=== PATIENT | female | born 1990 | race Caucasian/White ===

== ENCOUNTER 2019-12-18 08:12 | Day surgery (SDC) | payer MEDICAID, OTHER ==
[2019-12-18] MEDS ORDERED: Sodium Chloride 0.9% 10 ML Syringe FLUSH PRN (08:30)
[2019-12-18] MEDS ORDERED: Sodium Chloride 0.9% 1,000 ML IV STA (08:30)
[2019-12-18] MEDS ORDERED: Ondansetron 4 MG/2 ML SDV IVPUSH ONE (08:30)
[2019-12-18] MEDS ORDERED: Morphine 4 MG/ML Syringe IVPUSH ONE (08:31)
--- NOTE | 2019-12-18 09:02 | EDM.PDOC ---
ED HPI GENERAL MEDICAL PROBLEM - General Chief Complaint: Abdominal Pain Stated Complaint: ABDOMINAL PAIN Time Seen by Provider: 12/18/19 08:16 Source of Information: Reports: Patient History Limitations: Reports: No Limitations - History of Present Illness INITIAL COMMENTS - FREE TEXT/NARRATIVE: The patient presents with right upper abdominal pain that wraps around to her back. This has been going on since last night. She has know gallbladder issues and she is consulting with a surgeon next week to talk about having her gallbladder removed. She has been dealing with this for over a month. She is not sure if she ate to much fat yesterday. She has been doing okay trying to avoid fat in her diet. She has nausea and vomiting. She has no fever, chills, cough, congestion, runny nose, dysuria or hematuria. Onset: Gradual Duration: Day(s): (last night) Location: Reports: Abdomen, Back Quality: Reports: Sharp Severity: Severe Improves with: Reports: None Worsens with: Reports: None Associated Symptoms: Reports: Nausea/Vomiting. Denies: Chest Pain, Cough, Fever/Chills, Headaches, Shortness of Breath Right Upper Abdominal Pain Score (Numeric/FACES): 8 - Related Data Allergies Allergy/AdvReac Type Severity Reaction Status Date / Time hydromorphone [From Dilaudid] Allergy Severe Hallucinati Verified 12/18/19 08:23 ons Past Medical History Respiratory History: Reports: Asthma Endocrine/Metabolic History: Reports: Hypothyroidism - Past Surgical History HEENT Surgical History: Reports: Adenoidectomy, Tonsillectomy Social & Family History - Tobacco Use Smoking Status *Q: Never Smoker - Caffeine Use Caffeine Use: Reports: Soda - Recreational Drug Use Recreational Drug Use: No ED ROS GENERAL - Review of Systems Review Of Systems: See Below Constitutional: Reports: No Symptoms HEENT: Reports: No Symptoms Respiratory: Reports: Cough Cardiovascular: Reports: No Symptoms Endocrine: Reports: No Symptoms GI/Abdominal: Reports: Abdominal Pain, Nausea, Vomiting. Denies: Diarrhea : Reports: No Symptoms Musculoskeletal: Reports: Back Pain ED EXAM, GI/ABD - Physical Exam Exam: See Below Exam Limited By: No Limitations General Appearance: Alert, Mild Distress Ears: Normal External Exam Nose: Normal Inspection Head: Atraumatic, Normocephalic Neck: Normal Inspection Respiratory/Chest: No Respiratory Distress, Lungs Clear, Normal Breath Sounds Cardiovascular: Regular Rate, Rhythm, No Edema, No Murmur GI/Abdominal Exam: Soft, No Organomegaly, No Mass, Tender (Moderate pain to the RUQ that radiates to her right flank) Back Exam: Other (Right back pain) Extremities: Normal Inspection Course - Vital Signs Last Recorded V/S: Last Vital Signs Temp 97.9 F 12/18/19 08:18 Pulse 83 12/18/19 08:18 Resp 20 12/18/19 08:18 BP 115/73 12/18/19 08:18 Pulse Ox 100 12/18/19 08:18 - Orders/Labs/Meds Orders: Active Orders 24 hr Category Date Time Status Peripheral IV Care [RC] . DIRECTED Care 12/18/19 08:30 Active Sodium Chloride 0.9% [Saline Flush] Med 12/18/19 08:30 Active 10 ml FLUSH ASDIRECTED PRN ED Antiemetic Medication Reflex [OM.PC] Stat Oth 12/18/19 08:30 Ordered Peripheral IV Insertion Adult [OM.PC] Stat Oth 12/18/19 08:30 Ordered Medication Orders Sodium Chloride (Saline Flush) 10 ml FLUSH ASDIRECTED PRN PRN Reason: Keep Vein Open Last Admin: 12/18/19 08:39 Dose: 10 ml Documented by: TREVER Labs: Laboratory Tests 12/18/19 12/18/19 12/18/19 Range/Units 08:32 08:36 08:36 WBC 16.13 H (3.98-10.04) K/mm3 RBC 4.49 (3.98-5.22) M/mm3 Hgb 13.8 (11.2-15.7) gm/dl Hct 41.5 (34.1-44.9) % MCV 92.4 (79.4-94.8) fl MCH 30.7 (25.6-32.2) pg MCHC 33.3 (32.2-35.5) g/dl RDW Std Deviation 40.6 (36.4-46.3) fL Plt Count 333 (182-369) K/mm3 MPV 10.0 (9.4-12.3) fl Neut % (Auto) 78.0 H (34.0-71.1) % Lymph % (Auto) 13.0 L (19.3-51.7) % [place] % (Auto) 7.3 (4.7-12.5) % Eos % (Auto) 1.2 (0.7-5.8) Baso % (Auto) 0.3 (0.1-1.2) % Neut # (Auto) 12.58 H (1.56-6.13) K/mm3 Lymph # (Auto) 2.10 (1.18-3.74) K/mm3 [place] # (Auto) 1.17 H (0.24-0.36) K/mm3 Eos # (Auto) 0.19 (0.04-0.36) K/mm3 Baso # (Auto) 0.05 (0.01-0.08) K/mm3 Manual Slide Review Normal smear Sodium 140 (136-145) mEq/L Potassium 4.3 (3.5-5.1) mEq/L Chloride 103 (98-107) mEq/L Carbon Dioxide 29 (21-32) mEq/L Anion Gap 12.3 (5-15) BUN 14 (7-18) mg/dL Creatinine 0.9 (0.55-1.02) mg/dL Est Cr Clr Drug Dosing 3.24 mL/min Estimated GFR (MDRD) > 60 (>60) mL/min BUN/Creatinine Ratio 15.6 (14-18) Glucose 117 H (74-106) mg/dL Calcium 8.8 (8.5-10.1) mg/dL Total Bilirubin 0.7 (0.2-1.0) mg/dL AST 76 H (15-37) U/L ALT 71 H (14-59) U/L Alkaline Phosphatase 103 (46-116) U/L Total Protein 7.6 (6.4-8.2) g/dl Albumin 4.0 (3.4-5.0) g/dl Globulin 3.6 gm/dL Albumin/Globulin Ratio 1.1 (1-2) Lipase 131 (73-393) U/L HCG, Qual (NEGATIVE) Urine Color Dark yellow (Yellow) Urine Appearance Clear (Clear) Urine pH 6.0 (5.0-8.0) Ur Specific [place] > or = 1.030 (1.005-1.030) Urine Protein Trace H (Negative) Urine Glucose (UA) Negative (Negative) Urine Ketones Negative (Negative) Urine Occult Blood Negative (Negative) Urine Nitrite Negative (Negative) Urine Bilirubin 1+ H (Negative) Urine Urobilinogen 1.0 (0.2-1.0) Ur Leukocyte Esterase Negative (Negative) Urine RBC 0-5 (0-5) /hpf Urine WBC 0-5 (0-5) /hpf Ur Squamous Epith Cells 5-10 H (0-5) /hpf Urine Bacteria Moderate H (FEW) /hpf Urine Mucus Many H (FEW) /hpf 12/18/19 Range/Units 08:36 WBC (3.98-10.04) K/mm3 RBC (3.98-5.22) M/mm3 Hgb (11.2-15.7) gm/dl Hct (34.1-44.9) % MCV (79.4-94.8) fl MCH (25.6-32.2) pg MCHC (32.2-35.5) g/dl RDW Std Deviation (36.4-46.3) fL Plt Count (182-369) K/mm3 MPV (9.4-12.3) fl Neut % (Auto) (34.0-71.1) % Lymph % (Auto) (19.3-51.7) % [place] % (Auto) (4.7-12.5) % Eos % (Auto) (0.7-5.8) Baso % (Auto) (0.1-1.2) % Neut # (Auto) (1.56-6.13) K/mm3 Lymph # (Auto) (1.18-3.74) K/mm3 [place] # (Auto) (0.24-0.36) K/mm3 Eos # (Auto) (0.04-0.36) K/mm3 Baso # (Auto) (0.01-0.08) K/mm3 Manual Slide Review Sodium (136-145) mEq/L Potassium (3.5-5.1) mEq/L Chloride (98-107) mEq/L Carbon Dioxide (21-32) mEq/L Anion Gap (5-15) BUN (7-18) mg/dL Creatinine (0.55-1.02) mg/dL Est Cr Clr Drug Dosing mL/min Estimated GFR (MDRD) (>60) mL/min BUN/Creatinine Ratio (14-18) Glucose (74-106) mg/dL Calcium (8.5-10.1) mg/dL Total Bilirubin (0.2-1.0) mg/dL AST (15-37) U/L ALT (14-59) U/L Alkaline Phosphatase (46-116) U/L Total Protein (6.4-8.2) g/dl Albumin (3.4-5.0) g/dl Globulin gm/dL Albumin/Globulin Ratio (1-2) Lipase (73-393) U/L HCG, Qual Negative (NEGATIVE) Urine Color (Yellow) Urine Appearance (Clear) Urine pH (5.0-8.0) Ur Specific [place] (1.005-1.030) Urine Protein (Negative) Urine Glucose (UA) (Negative) Urine Ketones (Negative) Urine Occult Blood (Negative) Urine Nitrite (Negative) Urine Bilirubin (Negative) Urine Urobilinogen (0.2-1.0) Ur Leukocyte Esterase (Negative) Urine RBC (0-5) /hpf Urine WBC (0-5) /hpf Ur Squamous Epith Cells (0-5) /hpf Urine Bacteria (FEW) /hpf Urine Mucus (FEW) /hpf Meds: Medications Generic Name Dose Route Start Last Admin Trade Name Freq PRN Reason Stop Dose Admin Sodium Chloride 10 ml 12/18/19 08:30 12/18/19 08:39 Saline Flush FLUSH 10 ml ASDIRECTED PRN Administration Keep Vein Open Discontinued Medications Generic Name Dose Route Start Last Admin Trade Name Freq PRN Reason Stop Dose Admin Diphenhydramine HCl 50 mg 12/18/19 09:12 12/18/19 09:17 Benadryl IVPUSH 12/18/19 09:13 50 mg ONETIME ONE Administration Sodium Chloride 1,000 mls @ 1,000 mls/hr 12/18/19 08:30 12/18/19 08:35 Normal Saline IV 12/18/19 09:29 1,000 mls/hr .BOLUS STA Administration Morphine Sulfate 4 mg 12/18/19 08:31 12/18/19 08:38 Morphine IVPUSH 12/18/19 08:32 4 mg ONETIME ONE Administration Ondansetron HCl 4 mg 12/18/19 08:30 12/18/19 08:37 Zofran IVPUSH 12/18/19 08:31 4 mg ONETIME ONE Administration - Re-Assessments/Exams Free Text/Narrative Re-Assessment/Exam: 12/18/19 09:00 I ordered an IV NS 1L bolus, zofran 4mg IV, morphine 4mg IV, labs, UA and US. 12/18/19 09:58 Her WBC is elevated at 16.13. Her AST is elevated at 76. Her ALT is elevated at 71. Her lipase is normal. Her HCG is negative. Her UA shows no UTI. I am waiting for the US report. She requested some benadryl so I ordered her that. 12/18/19 11:15 Her US shows small layering gallstones with no gallbladder wall thickening or biliary duct dilatation. NO additional abnormality is appreciated on right upper quadrant abdominal US. I called Dr Collado and she will come see the patient and possibly removed the gallbladder today. 12/18/19 11:44 Dr Collado came to see the patient and she will take her to surgery. Departure - Departure Time of Disposition: 11:45 Disposition: DC/Tfer to [facility] Condition: Fair Clinical Impression: Biliary colic Cholelithiases Qualifiers: Cholelithiasis location: gallbladder Cholecystitis presence: without cholecystitis Biliary obstruction: without biliary obstruction Qualified Code(s): K80.20 - Calculus of gallbladder without cholecystitis without ob struction - Discharge Information Referrals: PCP,Not In Area [Primary Care Provider] - Forms: ED Department Discharge Sepsis Event Note (ED) - Evaluation Sepsis Screening Result: No Definite Risk - Focused Exam Vital Signs: Vital Signs Temp Pulse Resp BP Pulse Ox 12/18/19 08:18 97.9 F 83 20 115/73 100 - My Orders Last 24 Hours: My Active Orders 12/18/19 08:30 Peripheral IV Care [RC] . DIRECTED Sodium Chloride 0.9% [Saline Flush] 10 ml FLUSH ASDIRECTED PRN ED Antiemetic Medication Reflex [OM.PC] Stat Peripheral IV Insertion Adult [OM.PC] Stat - Assessment/Plan Last 24 Hours: My Active Orders 12/18/19 08:30 Peripheral IV Care [RC] . DIRECTED Sodium Chloride 0.9% [Saline Flush] 10 ml FLUSH ASDIRECTED PRN ED Antiemetic Medication Reflex [OM.PC] Stat Peripheral IV Insertion Adult [OM.PC] Stat
[2019-12-18] MEDS ORDERED: diphenhydrAMINE 50 MG/ML SDV IVPUSH ONE (09:12)
--- NOTE | 2019-12-18 10:54 | US ---
Limited abdominal ultrasound: Multiple real-time images of the upper right abdomen were obtained. Liver contains no focal abnormality. Pancreas appears normal. Gallbladder shows small layering gallstones. No gallbladder wall thickening or biliary duct dilatation is seen. Right kidney shows no hydronephrosis or mass. Impression: 1. Small layering gallstones with no gallbladder wall thickening or biliary duct dilatation. 2. No additional abnormality is appreciated on right upper quadrant abdominal ultrasound. Diagnostic code #2 Study was dictated in MDT
--- NOTE | 2019-12-18 11:46 | PCM.HP.2 ---
H&P History of Present Illness - General Date of Service: 12/18/19 Source of Information: Patient, Provider History Limitations: Reports: No Limitations - History of Present Illness Initial Comments - Free Text/Narative: The patient is a 29-year-old female presents with a complaint of right upper quadrant abdominal pain. The pain radiates to her back. It started at 5 AM this morning. She reports vomiting 1 time, it was nonbloody nonbilious. She has had 2 previous episodes, the last one was in August. She had elevation of her liver enzymes at that time, without any known explanation. She was diagnosed with biliary problems, and was scheduled to see a surgeon in [place]. In the emergency department she was evaluated with labs and ultrasound. She has elevated white blood cell count greater than 16,000. She has some layering stones in the gallbladder. Right Upper Abdominal Pain Score (Numeric/FACES): 8 - Related Data Allergies/Adverse Reactions: Allergies Allergy/AdvReac Type Severity Reaction Status Date / Time hydromorphone [From Dilaudid] Allergy Severe Hallucinati Verified 12/18/19 08:23 ons Past Medical History Respiratory History: Reports: Asthma Genitourinary History: Reports: Renal Calculus Endocrine/Metabolic History: Reports: Hypothyroidism - Past Surgical History HEENT Surgical History: Reports: Adenoidectomy, Tonsillectomy Social & Family History - Family History Cardiac: Reports: [place] : Reports: Renal Calculus Endocrine/Metabolic: Reports: Hypothyroidism - Tobacco Use Smoking Status *Q: Never Smoker - Caffeine Use Caffeine Use: Reports: Soda - Recreational Drug Use Recreational Drug Use: No H&P Review of Systems - Review of Systems: Review Of Systems: See Below General: Reports: No Symptoms HEENT: Reports: No Symptoms Pulmonary: Reports: No Symptoms Cardiovascular: Reports: No Symptoms Gastrointestinal: Reports: Abdominal Pain, Vomiting Genitourinary: Reports: No Symptoms Musculoskeletal: Reports: Joint Pain Skin: Reports: No Symptoms Neurological: Reports: No Symptoms Hematologic/Lymphatic: Reports: No Symptoms Exam - Exam Exam: See Below - Vital Signs Vital Signs: Last Vital Signs Temp 36.6 C 12/18/19 08:18 Pulse 83 12/18/19 08:18 Resp 20 12/18/19 08:18 BP 115/73 12/18/19 08:18 Pulse Ox 100 12/18/19 08:18 Weight: 2.268 kg - Exam Quality Assessment: No: Supplemental Oxygen General: Alert, Oriented HEENT: Conjunctiva Clear, EOMI Neck: Supple Lungs: Normal Respiratory Effort Cardiovascular: Regular Rate, Regular Rhythm GI/Abdominal Exam: Soft, Tender (in right abdomen, most in epigastrium) - Patient Data Lab Results Last 24 hrs: Laboratory Results - last 24 hr 12/18/19 12/18/19 12/18/19 Range/Units 08:32 08:36 08:36 WBC 16.13 H (3.98-10.04) K/mm3 RBC 4.49 (3.98-5.22) M/mm3 Hgb 13.8 (11.2-15.7) gm/dl Hct 41.5 (34.1-44.9) % MCV 92.4 (79.4-94.8) fl MCH 30.7 (25.6-32.2) pg MCHC 33.3 (32.2-35.5) g/dl RDW Std Deviation 40.6 (36.4-46.3) fL Plt Count 333 (182-369) K/mm3 MPV 10.0 (9.4-12.3) fl Neut % (Auto) 78.0 H (34.0-71.1) % Lymph % (Auto) 13.0 L (19.3-51.7) % [place] % (Auto) 7.3 (4.7-12.5) % Eos % (Auto) 1.2 (0.7-5.8) Baso % (Auto) 0.3 (0.1-1.2) % Neut # (Auto) 12.58 H (1.56-6.13) K/mm3 Lymph # (Auto) 2.10 (1.18-3.74) K/mm3 [place] # (Auto) 1.17 H (0.24-0.36) K/mm3 Eos # (Auto) 0.19 (0.04-0.36) K/mm3 Baso # (Auto) 0.05 (0.01-0.08) K/mm3 Manual Slide Review Normal smear Sodium 140 (136-145) mEq/L Potassium 4.3 (3.5-5.1) mEq/L Chloride 103 (98-107) mEq/L Carbon Dioxide 29 (21-32) mEq/L Anion Gap 12.3 (5-15) BUN 14 (7-18) mg/dL Creatinine 0.9 (0.55-1.02) mg/dL Est Cr Clr Drug Dosing 3.24 mL/min Estimated GFR (MDRD) > 60 (>60) mL/min BUN/Creatinine Ratio 15.6 (14-18) Glucose 117 H (74-106) mg/dL Calcium 8.8 (8.5-10.1) mg/dL Total Bilirubin 0.7 (0.2-1.0) mg/dL AST 76 H (15-37) U/L ALT 71 H (14-59) U/L Alkaline Phosphatase 103 (46-116) U/L Total Protein 7.6 (6.4-8.2) g/dl Albumin 4.0 (3.4-5.0) g/dl Globulin 3.6 gm/dL Albumin/Globulin Ratio 1.1 (1-2) Lipase 131 (73-393) U/L HCG, Qual (NEGATIVE) Urine Color Dark yellow (Yellow) Urine Appearance Clear (Clear) Urine pH 6.0 (5.0-8.0) Ur Specific [place] > or = 1.030 (1.005-1.030) Urine Protein Trace H (Negative) Urine Glucose (UA) Negative (Negative) Urine Ketones Negative (Negative) Urine Occult Blood Negative (Negative) Urine Nitrite Negative (Negative) Urine Bilirubin 1+ H (Negative) Urine Urobilinogen 1.0 (0.2-1.0) Ur Leukocyte Esterase Negative (Negative) Urine RBC 0-5 (0-5) /hpf Urine WBC 0-5 (0-5) /hpf Ur Squamous Epith Cells 5-10 H (0-5) /hpf Urine Bacteria Moderate H (FEW) /hpf Urine Mucus Many H (FEW) /hpf 12/18/19 Range/Units 08:36 WBC (3.98-10.04) K/mm3 RBC (3.98-5.22) M/mm3 Hgb (11.2-15.7) gm/dl Hct (34.1-44.9) % MCV (79.4-94.8) fl MCH (25.6-32.2) pg MCHC (32.2-35.5) g/dl RDW Std Deviation (36.4-46.3) fL Plt Count (182-369) K/mm3 MPV (9.4-12.3) fl Neut % (Auto) (34.0-71.1) % Lymph % (Auto) (19.3-51.7) % [place] % (Auto) (4.7-12.5) % Eos % (Auto) (0.7-5.8) Baso % (Auto) (0.1-1.2) % Neut # (Auto) (1.56-6.13) K/mm3 Lymph # (Auto) (1.18-3.74) K/mm3 [place] # (Auto) (0.24-0.36) K/mm3 Eos # (Auto) (0.04-0.36) K/mm3 Baso # (Auto) (0.01-0.08) K/mm3 Manual Slide Review Sodium (136-145) mEq/L Potassium (3.5-5.1) mEq/L Chloride (98-107) mEq/L Carbon Dioxide (21-32) mEq/L Anion Gap (5-15) BUN (7-18) mg/dL Creatinine (0.55-1.02) mg/dL Est Cr Clr Drug Dosing mL/min Estimated GFR (MDRD) (>60) mL/min BUN/Creatinine Ratio (14-18) Glucose (74-106) mg/dL Calcium (8.5-10.1) mg/dL Total Bilirubin (0.2-1.0) mg/dL AST (15-37) U/L ALT (14-59) U/L Alkaline Phosphatase (46-116) U/L Total Protein (6.4-8.2) g/dl Albumin (3.4-5.0) g/dl Globulin gm/dL Albumin/Globulin Ratio (1-2) Lipase (73-393) U/L HCG, Qual Negative (NEGATIVE) Urine Color (Yellow) Urine Appearance (Clear) Urine pH (5.0-8.0) Ur Specific [place] (1.005-1.030) Urine Protein (Negative) Urine Glucose (UA) (Negative) Urine Ketones (Negative) Urine Occult Blood (Negative) Urine Nitrite (Negative) Urine Bilirubin (Negative) Urine Urobilinogen (0.2-1.0) Ur Leukocyte Esterase (Negative) Urine RBC (0-5) /hpf Urine WBC (0-5) /hpf Ur Squamous Epith Cells (0-5) /hpf Urine Bacteria (FEW) /hpf Urine Mucus (FEW) /hpf Result Diagrams: 12/18/19 08:32 12/18/19 08:36 Sepsis Event Note - Evaluation Sepsis Screening Result: No Definite Risk - Focused Exam Vital Signs: Vital Signs Temp Pulse Resp BP Pulse Ox 12/18/19 08:18 36.6 C 83 20 115/73 100 Date Exam was Performed: 12/18/19 Time Exam was Performed: 12:28 *Q Meaningful Use (ADM) - VTE Risk Assess *Q Each Risk Factor Represents 1 Point: Minor Surgery Planned, Obesity ( BMI > 25 kg/m2) Total Score 1 Point Risk Factors: 2 - Problem List (1) Acute cholecystitis SNOMED Code(s): 37127839 ICD Code: K81.0 - ACUTE CHOLECYSTITIS Status: Acute Current Visit: Yes Problem List Initiated/Reviewed/Updated: Yes Orders Last 24hrs: Active Orders 24 hr Category Date Time Status Peripheral IV Care [RC] . DIRECTED Care 12/18/19 08:30 Active Sodium Chloride 0.9% [Saline Flush] Med 12/18/19 08:30 Active 10 ml FLUSH ASDIRECTED PRN ED Antiemetic Medication Reflex [OM.PC] Stat Oth 12/18/19 08:30 Ordered Peripheral IV Insertion Adult [OM.PC] Stat Oth 12/18/19 08:30 Ordered Medication Orders Sodium Chloride (Saline Flush) 10 ml FLUSH ASDIRECTED PRN PRN Reason: Keep Vein Open Last Admin: 12/18/19 08:39 Dose: 10 ml Documented by: TREVER Assessment/Plan Comment:: 29-year-old lady with acute cholecystitis - cefoxitin 2g IV - NPO - IVF resuscitation - plan for OR for urgent laparoscopic cholecystectomy, possible open. Discussed risks of infection, bleeding, bile duct injury, or injury to surrounding structures. Her written consent was obtained. -Determine need for inpatient stay based on intraoperative findings Ana Pollock MD General Surgery - Mortality Measure Prognosis:: Good
--- NOTE | 2019-12-18 12:37 | PCM.PREANE ---
Preanesthetic Assessment - Procedure Proposed Procedure: laparoscopic cholecystectomy - Anesthesia/Transfusion/Family Hx Anesthesia History: Prior Anesthesia Without Reaction Family History of Anesthesia Reaction: No Transfusion History: No Prior Transfusion(s) - Review of Systems General: Fatigue, Malaise Pulmonary: No Symptoms Cardiovascular: No Symptoms Gastrointestinal: Abdominal Pain (RUQ), Nausea, Vomiting (This AM) Neurological: Numbness ("fingers") Other: Reports: Liver Problems (elevated enzymes), Thyroid Problems (hypothyroid), Depression, Anxiety - Physical Assessment NPO Status Date: 12/17/19 NPO Status Time: 00:00 Vital Signs: Last Vital Signs Temp 36.6 C 12/18/19 08:18 Pulse 83 12/18/19 08:18 Resp 20 12/18/19 08:18 BP 115/73 12/18/19 08:18 Pulse Ox 100 12/18/19 08:18 Height: 4.95 m Weight: 2.268 kg ASA Class: 2 Mental Status: Alert & Oriented x3 Airway Class: Mallampati = 1 Dentition: Reports: Partial Thyro-Mental Finger Breadths: 3 Mouth Opening Finger Breadths: 3 ROM/Head Extension: Full Lungs: Clear to Auscultation, Normal Respiratory Effort Cardiovascular: Regular Rate, Regular Rhythm - Lab Values: Laboratory Last Values WBC 16.13 K/mm3 (3.98-10.04) H 12/18/19 08:32 RBC 4.49 M/mm3 (3.98-5.22) 12/18/19 08:32 Hgb 13.8 gm/dl (11.2-15.7) 12/18/19 08:32 Hct 41.5 % (34.1-44.9) 12/18/19 08:32 MCV 92.4 fl (79.4-94.8) 12/18/19 08:32 MCH 30.7 pg (25.6-32.2) 12/18/19 08:32 MCHC 33.3 g/dl (32.2-35.5) 12/18/19 08:32 RDW Std Deviation 40.6 fL (36.4-46.3) 12/18/19 08:32 Plt Count 333 K/mm3 (182-369) 12/18/19 08:32 MPV 10.0 fl (9.4-12.3) 12/18/19 08:32 Neut % (Auto) 78.0 % (34.0-71.1) H 12/18/19 08:32 Lymph % (Auto) 13.0 % (19.3-51.7) L 12/18/19 08:32 [place] % (Auto) 7.3 % (4.7-12.5) 12/18/19 08:32 Eos % (Auto) 1.2 (0.7-5.8) 12/18/19 08:32 Baso % (Auto) 0.3 % (0.1-1.2) 12/18/19 08:32 Neut # (Auto) 12.58 K/mm3 (1.56-6.13) H 12/18/19 08:32 Lymph # (Auto) 2.10 K/mm3 (1.18-3.74) 12/18/19 08:32 [place] # (Auto) 1.17 K/mm3 (0.24-0.36) H 12/18/19 08:32 Eos # (Auto) 0.19 K/mm3 (0.04-0.36) 12/18/19 08:32 Baso # (Auto) 0.05 K/mm3 (0.01-0.08) 12/18/19 08:32 Manual Slide Review Normal smear 12/18/19 08:32 Sodium 140 mEq/L (136-145) 12/18/19 08:36 Potassium 4.3 mEq/L (3.5-5.1) 12/18/19 08:36 Chloride 103 mEq/L (98-107) 12/18/19 08:36 Carbon Dioxide 29 mEq/L (21-32) 12/18/19 08:36 Anion Gap 12.3 (5-15) 12/18/19 08:36 BUN 14 mg/dL (7-18) 12/18/19 08:36 Creatinine 0.9 mg/dL (0.55-1.02) 12/18/19 08:36 Est Cr Clr Drug Dosing 3.24 mL/min 12/18/19 08:36 Estimated GFR (MDRD) > 60 mL/min (>60) 12/18/19 08:36 BUN/Creatinine Ratio 15.6 (14-18) 12/18/19 08:36 Glucose 117 mg/dL (74-106) H 12/18/19 08:36 Calcium 8.8 mg/dL (8.5-10.1) 12/18/19 08:36 Total Bilirubin 0.7 mg/dL (0.2-1.0) 12/18/19 08:36 AST 76 U/L (15-37) H 12/18/19 08:36 ALT 71 U/L (14-59) H 12/18/19 08:36 Alkaline Phosphatase 103 U/L (46-116) 12/18/19 08:36 Total Protein 7.6 g/dl (6.4-8.2) 12/18/19 08:36 Albumin 4.0 g/dl (3.4-5.0) 12/18/19 08:36 Globulin 3.6 gm/dL 12/18/19 08:36 Albumin/Globulin Ratio 1.1 (1-2) 12/18/19 08:36 Lipase 131 U/L (73-393) 12/18/19 08:36 HCG, Qual Negative (NEGATIVE) 12/18/19 08:36 Urine Color Dark yellow (Yellow) 12/18/19 08:36 Urine Appearance Clear (Clear) 12/18/19 08:36 Urine pH 6.0 (5.0-8.0) 12/18/19 08:36 Ur Specific [place] > or = 1.030 (1.005-1.030) 12/18/19 08:36 Urine Protein Trace (Negative) H 12/18/19 08:36 Urine Glucose (UA) Negative (Negative) 12/18/19 08:36 Urine Ketones Negative (Negative) 12/18/19 08:36 Urine Occult Blood Negative (Negative) 12/18/19 08:36 Urine Nitrite Negative (Negative) 12/18/19 08:36 Urine Bilirubin 1+ (Negative) H 12/18/19 08:36 Urine Urobilinogen 1.0 (0.2-1.0) 12/18/19 08:36 Ur Leukocyte Esterase Negative (Negative) 12/18/19 08:36 Urine RBC 0-5 /hpf (0-5) 12/18/19 08:36 Urine WBC 0-5 /hpf (0-5) 12/18/19 08:36 Ur Squamous Epith Cells 5-10 /hpf (0-5) H 12/18/19 08:36 Urine Bacteria Moderate /hpf (FEW) H 12/18/19 08:36 Urine Mucus Many /hpf (FEW) H 12/18/19 08:36 - Allergies Allergies/Adverse Reactions: Allergies Allergy/AdvReac Type Severity Reaction Status Date / Time hydromorphone [From Dilaudid] Allergy Severe Hallucinati Verified 12/18/19 08:23 ons - Blood Blood Available: No Product(s) Available: None - Anesthesia Plan Pre-Op Medication Ordered: None - Acknowledgements Anesthesia Type Planned: General Anesthesia Pt an Appropriate Candidate for the Planned Anesthesia: Yes Alternatives and Risks of Anesthesia Discussed w Pt/Guardian: Yes Pt/Guardian Understands and Agrees with Anesthesia Plan: Yes PreAnesthesia Questionnaire Respiratory History: Reports: Asthma Gastrointestinal History: Reports: GERD Genitourinary History: Reports: Renal Calculus Endocrine/Metabolic History: Reports: Hypothyroidism - Past Surgical History HEENT Surgical History: Reports: Adenoidectomy, Tonsillectomy - SUBSTANCE USE Smoking Status *Q: Never Smoker Tobacco Use Within Last Twelve Months: No Second Hand Smoke Exposure: No Days Per Week of Alcohol Use: 1 Number of Drinks Per Day: 0 Total Drinks Per Week: 0 Recreational Drug Use History: Yes Recreational Drug Type: Reports: Marijuana/Hashish (medical card for Anxiety and depression) - CURRENT (IN HOUSE) MEDS Current Meds: Current Medications Sodium Chloride (Saline Flush) 10 ml FLUSH ASDIRECTED PRN PRN Reason: Keep Vein Open Last Admin: 12/18/19 08:39 Dose: 10 ml Documented by: Discontinued Medications Diphenhydramine HCl (Benadryl) 50 mg IVPUSH ONETIME ONE Stop: 12/18/19 09:13 Last Admin: 12/18/19 09:17 Dose: 50 mg Documented by: Sodium Chloride (Normal Saline) 1,000 mls @ 1,000 mls/hr IV .BOLUS STA Stop: 12/18/19 09:29 Last Admin: 12/18/19 08:35 Dose: 1,000 mls/hr Documented by: Morphine Sulfate (Morphine) 4 mg IVPUSH ONETIME ONE Stop: 12/18/19 08:32 Last Admin: 12/18/19 08:38 Dose: 4 mg Documented by: Ondansetron HCl (Zofran) 4 mg IVPUSH ONETIME ONE Stop: 12/18/19 08:31 Last Admin: 12/18/19 08:37 Dose: 4 mg Documented by:
[2019-12-18] MEDS ORDERED: Ondansetron 4 MG/2 ML SDV ONE (12:50)
[2019-12-18] MEDS ORDERED: Rocuronium 50 MG/5 ML Vial ONE (12:50)
[2019-12-18] MEDS ORDERED: Propofol 200 MG/20 ML SDV ONE (12:51)
[2019-12-18] MEDS ORDERED: Midazolam 1 MG/ML 2 ML SDV ONE (12:51)
[2019-12-18] MEDS ORDERED: Lidocaine 1% 4 ML ONE (12:51)
[2019-12-18] MEDS ORDERED: fentaNYL 250 MCG/5 ML SDV ONE ×2 (12:51→14:08)
[2019-12-18] MEDS ORDERED: Lactated Ringers 1,000 ML ONE ×2 (13:04→14:46)
[2019-12-18] MEDS ORDERED: Bupivacaine 0.5%/EPINEPHrine 1:200,000 50 ML MDV ONE (13:08)
[2019-12-18] MEDS ORDERED: Lidocaine 1% with EPINEPHrine 1:100,000 20 ML MDV ONE (13:08)
[2019-12-18] MEDS ORDERED: cefOXitin 2 GM in Premix Bag 1 BAG IV ONE (13:16)
--- NOTE | 2019-12-18 14:48 | PCM.OPNOTE ---
- General Post-Op/Procedure Note Date of Surgery/Procedure: 12/18/19 Operative Procedure(s): laparoscopic cholecystectomy Findings: normal anatomy Pre Op Diagnosis: acute cholecystitis Post-Op Diagnosis: same Anesthesia Technique: MAC Primary Surgeon: Ana Pollock Anesthesia Provider: Nicolás Jarrell Pathology: gallbladder with contents Fluid Replacement, Intraop: 1,300 Output, Urine Amount: 0 EBL in mLs: 20 Complications: none apparent Condition: Good
--- NOTE | 2019-12-18 14:51 | PCM.PRNOTE ---
- Free Text/Narrative Note: OPERATIVE REPORT Date of Surgery/Procedure: December 18, 2019 Operative Procedure(s): laparoscopic cholecystectomy Findings: Normal gallbladder anatomy Pre Op Diagnosis: Acute cholecystitis Post-Op Diagnosis: Same Anesthesia Technique: General ET Tube Primary Surgeon: Ana Pollock MD Anesthesia Provider: Nicolás Jarrell CRNA Pathology: Gallbladder with contents Fluid Replacement, Intraop: 1300cc Output, Urine Amount: 0cc EBL: 20cc Drain/Tube Comments: None Indication for the procedure: The patient is a 29-year-old lady who presented to the emergency department with findings of acute cholecystitis. The patient was counseled for laparoscopic cholecystectomy, with possible conversion to open. After discussion of the risks of infection, bleeding and injury to the bile duct, the patient's consent was obtained. Description of the procedure: The patient presented to the outpatient holding area on the day of the procedure. The history and physical were verified and consent was present and on the chart. The patient was taken back to the operating room and placed in supine position on the operating table. SCD boots were placed and functional prior to the start of the procedure. Preoperative antibiotics were administered, cefoxitin 2 g IV. A surgical timeout was performed. The patient then had induction of general anesthesia and was intubated without difficulty. The patient was prepped and draped in standard surgical fashion. We began by making an infraumbilical vertical incision and deepened this down through subcutaneous fat to the level of the fascia. This was grasped and incised. We bluntly entered through the peritoneum and a finger sweep was done. A stay suture of 0 Vicryl was placed in the fascia. The 12 mm balloon Ordaz port was then inserted into the abdomen and the balloon inflated. Insufflation was attached and we had appropriate opening pressures. The abdomen was then insufflated to 15 mmHg. We inserted a scope into the abdomen and inspected the area where we had entered. There was no evidence of injury to surrounding structures with no evidence of bile or bleeding. A TAP block was then performed using 1% lidocaine with epinephrine mixed with 0.5% bupivacaine with epinephrine. We then proceeded with placing our additional ports. A 5mm port was placed in the epigastric region. Two additional 5mm ports placed under direct visualization in the right upper quadrant. The patient was then positioned with head up and right side up to facilitate exposure of the gallbladder. Once we had sufficiently exposed the dome of the gallbladder. This was grasped and retracted cephalad. We proceeded with our dissection to expose the cystic duct and cystic artery. We did have a critical view. The cystic duct and artery were then clipped and cut using endoscopic scissors. We then proceeded to fully dissect the gallbladder off of the cystic plate using the Bovie device. The gallbladder was then placed in the Endo Catch bag and withdrawn towards the umbilical port. We then inspected the area of the dissection. The Bovie device was used for hem ostasis. We then reinspected, there was no significant bleeding and hemostasis was achieved. We then inspected the port sites and desufflated the abdomen. The ports were then removed. The gallbladder was withdrawn through the umbilical port site. We then proceeded to close the umbilical port site using an 0 Vicryl stitch. We had good closure of the fascia. A superficial 4-0 monocryl suture was used to approximate the skin. The skin was covered with Dermabond surgical glue. The patient tolerated the procedure well and was extubated without difficulty. She was transported to the PACU in stable condition. All sponge, needle counts correct. I was scrubbed and actively participated in the entire procedure. No immediate complications noted. Complications: None apparent Condition: Good Ana Pollock MD General Surgery
[2019-12-18] MEDS ORDERED: Ketorolac 30 MG/ML SDV IVPUSH PRN (15:05)
[2019-12-18] MEDS ORDERED: fentaNYL 100 MCG/2 ML SDV IVPUSH PRN (15:05)
--- NOTE | 2019-12-18 15:06 | PCM.POSTAN ---
POST ANESTHESIA ASSESSMENT - MENTAL STATUS Mental Status: Alert, Oriented - VITAL SIGNS Vital Signs: Last Vital Signs Temp 36.6 C 12/18/19 08:18 Pulse 83 12/18/19 08:18 Resp 20 12/18/19 08:18 BP 115/73 12/18/19 08:18 Pulse Ox 100 12/18/19 08:18 - RESPIRATORY Respiratory Status: Respiratory Rate WNL, Airway Patent, O2 Saturation Stable, Supplemental Oxygen - CARDIOVASCULAR CV Status: Pulse Rate WNL, Blood Pressure Stable - GASTROINTESTINAL GI Status: No Symptoms - PAIN Pain Score: 5 - POST OP HYDRATION Hydration Status: Adequate & Stable - OBSERVATIONS Free Text/Narrative:: no anesthesia complications noted
--- NOTE | 2019-12-18 15:27 | PCM48HPAN ---
Post Anesthesia Note - EVALUATION WITHIN 48HRS OF ANESTHETIC Vital Signs in Normal Range: Yes Patient Participated in Evaluation: Yes Respiratory Function Stable: Yes Airway Patent: Yes Cardiovascular Function Stable: Yes Hydration Status Stable: Yes Pain Control Satisfactory: Yes (pain meds given) Nausea and Vomiting Control Satisfactory: Yes Mental Status Recovered: Yes Vital Signs: Last Vital Signs Temp 37.2 C 12/18/19 15:00 Pulse 83 12/18/19 08:18 Resp 10 L 12/18/19 15:00 BP 138/75 12/18/19 15:00 Pulse Ox 99 12/18/19 15:00
[2019-12-18] MEDS ORDERED: LORazepam 2 MG/ML SDV IVPUSH ONE (15:32)
[2019-12-18] MEDS ORDERED: Morphine 4 MG/ML Syringe IVPUSH SCH (15:45)
[2019-12-18] MEDS ORDERED: Morphine 2 MG/ML SYRINGE IVPUSH SCH (15:45)
[2019-12-18] MEDS ORDERED: Acetaminophen/oxyCODONE 325-5 MG Tab PO PRN (17:08)
== END 2019-12-18 19:06 | disposition home or self-care (01) ==
LOC: JD.ED 08:12 → JD.SDS 13:22 → JD.MS 17:08 → JD.SDS 19:06
PROVIDERS: ATTEND Surgery
DX: K80.10 Calculus of gallbladder with chronic cholecystitis without obstruction (principal); J45.909 Unspecified asthma, uncomplicated; E03.9 Hypothyroidism, unspecified; Z88.5 Allergy status to narcotic agent; Z20.828 Contact with and (suspected) exposure to other viral communicable diseases
CPT/HCPCS: 36415; 47562; 76705; 80053; 81001; 81025; 83690; 84703; 85025; 87635; 88304; 96361; 96374; 96375; 99285; J1200; J1885; J2001; J2060; J2250; J2270; J2405; J2704; J2710; J3010; J3490; J7030; J7120; 00790; 99284; U0002

== ENCOUNTER 2020-01-09 12:43 | Emergency (ER) | payer MEDICAID ==
[2020-01-09] MEDS ORDERED: Ketorolac 60 MG/2 ML SDV IM ONE (13:21)
--- NOTE | 2020-01-09 13:34 | EDM.PDOC ---
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 She states that she has been saturating a large tampon every hour and a half. She does not use pads. She is on the Nexplanon control which she has had implanted since last April. She generally does have some cramping with her periods, however this seems to be worse than normal. She does have a day or 2 of heavy bleeding with her normal periods but generally not this long. Periods have been irregular, therefore she is unsure if she had a normal period last month. She has no dizziness but has had intermittent nausea over the last 2 days. She has a history of Aelena's thyroiditis and is due to have her thyroid rechecked next month. States that her thyroid levels have been fairly well managed on her current 50 mcg/day 6 days a week dose of levothyroxine. She has been using ibuprofen for pain, however has not taken any thus far today. Lower Abdominal Pain Score (Numeric/FACES): 4 - Related Data Allergies Allergy/AdvReac Type Severity Reaction Status Date / Time hydromorphone [From Dilaudid] Allergy Severe Hallucinati Verified 01/09/20 12:55 ons Past Medical History Respiratory History: Reports: Asthma Gastrointestinal History: Reports: GERD Genitourinary History: Reports: Renal Calculus Endocrine/Metabolic History: Reports: Hypothyroidism - Past Surgical History HEENT Surgical History: Reports: Adenoidectomy, Tonsillectomy GI Surgical History: Reports: Cholecystectomy Social & Family History - Family History Cardiac: Reports: PA : Reports: Renal Calculus Endocrine/Metabolic: Reports: Hypothyroidism - Tobacco Use Smoking Status *Q: Never Smoker Second Hand Smoke Exposure: No - Caffeine Use Caffeine Use: Reports: None - Recreational Drug Use Recreational Drug Use: Yes Drug Use in Last 12 Months: Yes Recreational Drug Type: Reports: Marijuana/Hashish Other Recreational Drug Type: medical marijuana ED ROS GENERAL - Review of Systems Review Of Systems: See Below Constitutional: Reports: No Symptoms. Denies: Fever, Chills HEENT: Reports: No Symptoms Respiratory: Reports: No Symptoms Cardiovascular: Reports: No Symptoms Endocrine: Reports: No Symptoms GI/Abdominal: Reports: No Symptoms : Reports: Irregular Menses, Pain (menstuaral cramps). Denies: Dysuria, Flank Pain Musculoskeletal: Reports: No Symptoms Skin: Reports: No Symptoms Neurological: Reports: No Symptoms Psychiatric: Reports: No Symptoms Hematologic/Lymphatic: Reports: No Symptoms Immunologic: Reports: No Symptoms ED EXAM, RENAL/ - Physical Exam Exam: See Below Exam Limited By: No Limitations General Appearance: Alert, WD/WN, No Apparent Distress Respiratory/Chest: No Respiratory Distress, Lungs Clear, Normal Breath Sounds, No Accessory Muscle Use, Chest Non-Tender Cardiovascular: Normal Peripheral Pulses, Regular Rate, Rhythm, No Edema, No Gallop, No JVD, No Murmur, No Rub GI/Abdominal: Normal Bowel Sounds, Soft, Non-Tender, No Organomegaly, No Distention, No Abnormal Bruit, No Mass (Female) Exam: Vaginal Bleeding, Other (Mild suprapubic tenderness) Neurological: Alert, Oriented, CN II-XII Intact, Normal Cognition, Normal Gait, Normal Reflexes, No Motor/Sensory Deficits Psychiatric: Normal Affect, Normal Mood Skin Exam: Warm, Dry, Intact, Normal Color, No Rash Course - Vital Signs Last Recorded V/S: Last Vital Signs Temp 98.4 F 01/09/20 12:52 Pulse 74 01/09/20 12:52 Resp 16 01/09/20 12:52 BP 127/82 01/09/20 12:52 Pulse Ox 95 01/09/20 12:52 Orthostatic Blood Pressure [ 132/69 Standing] Orthostatic Blood Pressure [ 121/73 Supine] - Orders/Labs/Meds Labs: Laboratory Tests 01/09/20 01/09/20 01/09/20 Range/Units 13:42 13:42 14:00 WBC 13.46 H (3.98-10.04) K/mm3 RBC 4.56 (3.98-5.22) M/mm3 Hgb 13.7 (11.2-15.7) gm/dl Hct 41.7 (34.1-44.9) % MCV 91.4 (79.4-94.8) fl MCH 30.0 (25.6-32.2) pg MCHC 32.9 (32.2-35.5) g/dl RDW Std Deviation 40.7 (36.4-46.3) fL Plt Count 373 H (182-369) K/mm3 MPV 9.4 (9.4-12.3) fl Neut % (Auto) 66.3 (34.0-71.1) % Lymph % (Auto) 26.0 (19.3-51.7) % [place] % (Auto) 5.3 (4.7-12.5) % Eos % (Auto) 1.7 (0.7-5.8) Baso % (Auto) 0.5 (0.1-1.2) % Neut # (Auto) 8.91 H (1.56-6.13) K/mm3 Lymph # (Auto) 3.50 (1.18-3.74) K/mm3 [place] # (Auto) 0.72 H (0.24-0.36) K/mm3 Eos # (Auto) 0.23 (0.04-0.36) K/mm3 Baso # (Auto) 0.07 (0.01-0.08) K/mm3 Manual Slide Review Abnormal smear Sodium 140 (136-145) mEq/L Potassium 4.3 (3.5-5.1) mEq/L Chloride 106 (98-107) mEq/L Carbon Dioxide 25 (21-32) mEq/L Anion Gap 13.3 (5-15) BUN 20 H (7-18) mg/dL Creatinine 1.0 (0.55-1.02) mg/dL Est Cr Clr Drug Dosing 58.55 mL/min Estimated GFR (MDRD) > 60 (>60) mL/min BUN/Creatinine Ratio 20.0 H (14-18) Glucose 95 (74-106) mg/dL Calcium 9.2 (8.5-10.1) mg/dL Total Bilirubin 0.4 (0.2-1.0) mg/dL AST 17 (15-37) U/L ALT 20 (14-59) U/L Alkaline Phosphatase 98 (46-116) U/L Total Protein 7.9 (6.4-8.2) g/dl Albumin 4.1 (3.4-5.0) g/dl Globulin 3.8 gm/dL Albumin/Globulin Ratio 1.1 (1-2) Free T4 1.03 (0.76-1.46) ng/dL TSH 3rd Generation 7.188 H (0.358-3.74) uIU/mL HCG, Quant < 1.0 mIU/mL Urine Color Light yellow (Yellow) Urine Appearance Clear (Clear) Urine pH 8.0 (5.0-8.0) Ur Specific [place] 1.020 (1.005-1.030) Urine Protein Negative (Negative) Urine Glucose (UA) Negative (Negative) Urine Ketones Negative (Negative) Urine Occult Blood 2+ H (Negative) Urine Nitrite Negative (Negative) Urine Bilirubin Negative (Negative) Urine Urobilinogen 0.2 (0.2-1.0) Ur Leukocyte Esterase Negative (Negative) Urine RBC 0-5 (0-5) /hpf Urine WBC Not seen (0-5) /hpf Ur Squamous Epith Cells 0-5 (0-5) /hpf Urine Bacteria Rare (FEW) /hpf Urine Mucus Not seen (FEW) /hpf Meds: Medications Discontinued Medications Generic Name Dose Route Start Last Admin Trade Name Freq PRN Reason Stop Dose Admin Ketorolac Tromethamine 60 mg 01/09/20 13:21 01/09/20 13:30 Toradol IM 01/09/20 13:22 60 mg ONETIME ONE Administration - Re-Assessments/Exams Free Text/Narrative Re-Assessment/Exam: 01/09/20 16:15 Hemotology was significant for WBC slightly elevated at 13.46 with no left shift. TSH was elevated at 7.188. hCG was negative. Urinalysis was negative for any signs of infection. Ultrasound showed a small complicated cyst measuring 1.2 cm off the left ovary believed to be due to a small hemorrhagic cyst. There is no free fluid in the pelvis. Endometrial thickness is normal. Called and spoke with the certified medication technician on-call, Dr. Carlson. She discussed that this is fairly normal with the Nexesson control. If the patient wants to stop the bleeding as opposed to wait for it to subside on its own, and she verbalized that we could do a tapering estrogen pill. Discussed with the patient and she would rather just wait for the bleeding to stop on its own. Dr. Carlson did advise that if this becomes frequent for her, she should follow-up with her certified medication technician and discuss a possible change to a different control. Patient is currently taking levothyroxine 50 mcg 6 days a week. 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 She is in agreement with this plan. Discharge instructions as documented. Departure - Departure Time of Disposition: 16:15 Disposition: Home, Self-Care 01 Condition: Good Clinical Impression: Dysmenorrhea - Discharge Information *PRESCRIPTION DRUG MONITORING PROGRAM REVIEWED*: No *COPY OF PRESCRIPTION DRUG MONITORING REPORT IN PATIENT SCOTT: No Instructions: Dysmenorrhea Referrals: PCP,None [Primary Care Provider] - Forms: ED Department Discharge Additional Instructions: You were seen in the emergency department today for a 5-day history of heavy vaginal bleeding and cramping. Your work-up included blood work, urinalysis, and a transvaginal ultrasound. Your blood work was found to be overall normal. Your hemoglobin is normal so you are not losing and blood. Your TSH was elevated today at 7.1. Based on this, I would recommend that you start taking your levothyroxine 50 mcg 7 days a week instead of 6 days a week. Call and sp eak with your burglar alarm superintendent tomorrow regarding these results. With regard to the vaginal bleeding. We did consult with the certified medication technician cathodic protection technician. She verbalized that this can be normal with the Nexplanon control. You chose to wait to see if the bleeding stops as opposed to taking an estrogen pill to stop the bleeding. You may use [id number] NSAIDs such as ibuprofen or Naprosyn to treat the pain of the cramping. If you find that this becomes a common occurrence for you, I would recommend that you follow-up with your certified medication technician to discuss an alternative control option. You should experience any worsening symptoms, please do not hesitate to return to the emergency department. Sepsis Event Note (ED) - Evaluation Sepsis Screening Result: No Definite Risk
--- NOTE | 2020-01-09 15:35 | US ---
Pelvic ultrasound: Multiple real-time images were obtained transvaginally. Comparison: No prior pelvic imaging is available. Findings: Uterus is anteverted. No myometrial abnormality is appreciated. Endometrial thickness is normal at 6.7 mm. Follicles are seen within both ovaries. Small complicated exophytic cyst is noted off left ovary measuring 1.2 cm which is believed to be due to small hemorrhagic cyst. No free fluid is seen. Measurements: Uterus: Length 6.5 cm, AP height 3.3 cm, transverse width 4.0 cm Right ovary: 3.2 x 1.8 x 2.1 cm Left ovary: 2.6 x 1.8 x 2.1 cm Impression: 1. Small complicated exophytic cyst measuring 1.2 cm off the left ovary believed to be due to small hemorrhagic cyst. 2. Other portions of the pelvic ultrasound are unremarkable. Diagnostic code #2 This report was dictated in MDT
== END 2020-01-09 16:40 | disposition home or self-care (01) ==
LOC: JD.ED 12:43
DX: N94.6 Dysmenorrhea, unspecified (principal); Z88.5 Allergy status to narcotic agent
CPT/HCPCS: 36415; 76830; 80053; 81001; 84439; 84443; 84702; 85025; 96372; 99284; J1885; 99283